=== PATIENT | male | born 2000 | race Caucasian/White ===

== ENCOUNTER → 2018-04-09 14:26 | Outpatient (CLI) | payer SELFPAY ==
--- NOTE | 2018-04-09 14:51 | CT_ITS ---
CT abdomen pelvis w con CLINICAL INDICATION: Right lower quadrant pain with nausea and vomiting ITS.REASON: RLQ PAIN ORDERING PHYSICIAN: Anni Gambino PATIENT AGE: 17 years COMPARISON: None TECHNIQUE: Axial images obtained with sagittal and coronal reformats. All CT scans at the facility use one or more dose reduction, viz: automated exposure control, ma/kV adjustment per patient size (including targeted exams where dose is matched to indication, i.e. head), or iterative reconstruction technique. PROCEDURE: Oral Contrast: Gastroview IV Contrast: 75 mL of Isovue-370. FINDINGS: The lung bases are clear. The liver, gallbladder, spleen, adrenal glands, pancreas, and kidneys have an unremarkable appearance. There are scattered small nodes present in the mesenteries. A normal appendix is not identified. What appears represent a mildly distended appendix noted images [id number] with suspected appendicolith at the base of the appendix at 10 mm. No significant stranding however noted in the periappendiceal region No abscess. No free air. No acute bony anomalies. IMPRESSION: The findings are suspicious for appendicitis with appendicolith. No abscess or free air evident. Scattered small mesenteric lymph nodes [facility] teleradiology report rendered 04/09/2018 5:25 PM
[2018-04-09 15:01] LABS: Blood Urea Nitrogen 11 mg/dL (7-18); Creatinine,Serum 0.89 mg/dL (0.70-1.30); Estimated Glomerular Filt Rate 110 ml/min (>60); GFR (African American) 133 ML/MIN (>60)
== END ==
PROVIDERS: PCP Nurse Practitioner Family; Visit Provider Nurse Practitioner Family
DX: R10.31 Right lower quadrant pain (principal)
CPT/HCPCS: 36415; 74177; 82565; 84520; Q9967

== ENCOUNTER 2018-04-09 17:43 | Observation (INO) ==
--- NOTE | 2018-04-09 18:07 | Emergency Department Note ---
ED Disposition Clinical Impression: Abdominal pain Qualifiers: Abdominal location: right lower quadrant Qualified Code(s): R10.31 - Right lower quadrant pain Acute appendicitis Qualifiers: Acute appendicitis type: with localized peritonitis Appendicitis gangrene presence: without gangrene Appendicitis perforation presence: without perforation Appendicitis abscess presence: without abscess Qualified Code(s): K35.30 - Acute appendicitis with localized peritonitis, without perforation or gangrene Disposition: Admitted as Observation Condition on Discharge: Fair Instructions: Acute Abdominal Pain Additional Instructions: DI for Acute Appendicitis Referrals: Provider,Referral, [Primary Care Provider] - - Critical Care Critical Care Time: No Attestation: On 04/09/18, the high probability of a clinically significant, sudden or life threatening deterioration of the following system(s) required my full and direct attention, intervention and personal management. The time I documented below is in addition to time spent performing reported procedures but includes the following listed in this critical care notation. Medical Decision Making - Medical Records Medical records reviewed: Yes: I reviewed the patient's medical records. - Ankit Inquiry Pt receiving controlled substance: Yes Ankit was queried for this patient: No Reason not queried -: Emergent pt cond-no time Risks and benefits of using a controlled substance: were discussed with pt by me Vital Signs: 04/09/18 18:01 Temperature 98.7 F Temperature Source Oral Pulse Rate [Left Radial] 75 Respiratory Rate 20 Blood Pressure [Right Arm] 118/54 L Blood Pressure Mean [Right Arm] 75 Blood Pressure Source [Right Arm] Automatic Cuff Blood Pressure Position [Right Arm] Sitting 02 Sat by Pulse Oximetry 97 Oxygen Delivery Method Room Air - Lab Data Lab results reviewed: Yes: I reviewed the patient's lab results. Orders (Tests/Meds): ED MEDICATIONS Generic Name Dose Route Start Last Admin Trade Name Freq PRN Reason Stop Dose Admin Sodium Chloride 1,000 mls @ 500 mls/hr 04/09/18 18:00 Sod Chlor 0.9% 1000ml Bag IV 05/09/18 17:59 .Q2H ULI Metronidazole 100 mls @ 100 mls/hr 04/09/18 18:00 Flagyl 500mg/100ml Ivpb IV 04/09/18 18:59 ONCE ONE Discontinued Medications Generic Name Dose Route Start Last Admin Trade Name Freq PRN Reason Stop Dose Admin Cefazolin Sodium 1 gm 04/09/18 17:58 Ancef 1gm Vial IM 04/09/18 17:59 ONCE ONE Protocol Ampicillin Sodium/Sulbactam 100 mls @ 200 mls/hr 04/09/18 18:08 Sodium 3 gm/ Sodium Chloride IV 04/09/18 18:09 ONCE ONE Protocol Morphine Sulfate 4 mg 04/09/18 17:54 04/09/18 18:06 Morphine 4mg/Ml Syringe IV 04/09/18 17:55 4 mg ONCE ONE Administration Ondansetron HCl 4 mg 04/09/18 17:55 04/09/18 18:06 Zofran 4mg/2ml Vial IV 04/09/18 17:56 4 mg ONCE ONE Administration ORDERS Category Date Time Status Amylase Stat Lab 04/09/18 18:02 Received CBC [Complete Blood Count Auto Diff] Stat Lab 04/09/18 18:02 Received CMP [Comprehensive Metabolic Panel] Stat Lab 04/09/18 18:02 Received Lipase Stat Lab 04/09/18 18:02 Received Blood Culture Stat Micro 04/09/18 18:02 Ordered - CT Data CT Scan: Abdomen, Pelvis Time Received: 18:[address] Reviewed: Yes: I have reviewed the patient's CT results, I have viewed the radiologist's interpretation Preliminary Findings: Abnormal Findings Narrative: Acute Appendicitis - Physician Consults Physician Consulted: Dr. Slaughter Time: 18:00 (Will see in ED) Reason -: Admission, Pt condition Abdominal Pain HPI - General Stated Complaint: Appendicitis Time Seen by Provider: 04/09/18 17:45 Mode of Arrival: Ambulatory Source of Information: Patient, Parent(s) Limitations: No Limitations - History of Present Illness complaint: abdominal pain Onset (ago): week(s) (1) Consistency: constant Location: RLQ Severity: moderate (worse since yesterday) Severity scale (1-10): 9 Quality: sharp Radiation: RLQ Migration to: no migration Relieving factors: nothing Exacerbating factors: nothing Associated symptoms: nausea - Related Data Allergies Allergy/AdvReac Type Severity Reaction Status Date / Time No Known Allergies Allergy Verified 04/09/18 18:06 [facility] History I have reviewed the patient's past medical history: Yes ROS Obtained: Yes All systems reviewed & no additional complaints - Constitutional Constitutional: Reports system reviewed and no additional complaints, except as docu, Denies chills, Denies fever(s) - Cardiovascular Cardiovascular: Reports system reviewed and no additional complaints, except as docu - Respiratory Respiratory: Yes system reviewed and no additional complaints, except as docu - Gastrointestinal Gastrointestingal: Reports: system reviewed and no additional complaints, except as docu, abdominal pain, nausea. Denies: constipation, diarrhea, vomiting - Genitourinary Male Genitourinary: Reports system reviewed and no additional complaints, except as docu, Denies difficulty urinating, Denies flank pain Physical Exam - General General appearance: alert, in distress (moderate) - Head Head exam: atraumatic, normocephalic, normal inspection - Neck Neck exam: Present: normal inspection, full ROM, trachea midline. Absent: meningismus, lymphadenopathy - Respiratory Respiratory exam: Present: normal lung sounds bilaterally. Absent: respiratory distress - Cardiovascular Cardiovascular exam: Present: regular rate, normal rhythm. Absent: JVD - Abdominal Exam Abdominal exam: Present: soft, tenderness (periumbilical), normal bowel sounds. Absent: distention, guarding - Extremities Exam Extremities exam: Present: normal inspection - Neurological Exam Neurological exam: Present: alert, oriented X3 - Psychiatric Psychiatric exam: Present: normal affect, normal mood
[2018-04-09 18:20] LABS: Amylase 37 U/L (25-115); Lipase 86 u/L (73-393)
[2018-04-09 18:23] LABS: Albumin Level 4.7 gm/dL (3.4-5.0); Albumin/Globulin Ratio 1.3 (1.1-1.8); Anion Gap 14.7 mEq/L (5-15); Bilirubin,Total 0.9 mg/dL (0.2-1.0); Calcium 9.4 mg/dL (8.5-10.1); Globulin 3.5 gm/dl (1.3-3.2); Potassium 3.7 mmoL/L (3.5-5.1); Total Protein,Serum 8.2 gm/dL (6.4-8.2)
[2018-04-09 19:05] LABS: INR 1.13 (0.9-1.1); Prothrombin Time 11.6 seconds (9.4-11.8)
[2018-04-09 19:15] LABS: Basophils % 0.2 % (0.1-2.0); Eosinophils % 0.1 % (0.1-12.0); Lymphocytes # 0.9 K/mm3 (0.7-4.5); Lymphocytes % 4.6 % (10-50); Mean Corpuscular HGB Conc 33.3 g/dL (31.8-35.4); Mean Corpuscular Hemoglobin 29.4 pg (27.0-31.2); Mean Corpuscular Volume 88.4 fl (80-94); Mean Platelet Volume 7.8 fl (7.4-10.4); Monocytes % 4.9 % (1.7-9.3); Neutrophils # 18.2 K/mm3 (1.8-7.8); Neutrophils % 90.1 % (37.0-80.0); Platelet Count 232 K/mm3 (142-424); Red Blood Count 5.77 M/mm3 (4.60-6.20); Red Cell Distribution Width 12.8 % (11.5-17.5); White Blood Count 20.2 K/mm3 (4.5-13.0)
[2018-04-09 19:16] LABS: Activated Partial Thrombo Time 35.6 seconds (23.6-34.0)
[2018-04-09 20:07] LABS: Lymphocytes % 6 % (10-50); Monocytes % 5 % (2-9); Neutrophils % 89 % (42-76); RBC Morphology Normal; Total Cells Counted 100
--- NOTE | 2018-04-09 23:16 | Progress Note ---
[facility] Anesthesia Checklist - Patient Identification Patient Identification: Arm Band, Verbal (Name & ) - Structural Data Admitted From: Home Planned Operative Procedure/s: lkap appy - NPO Status Verified Time NPO: 06:00 - Additional verifications Patient : No Anesthesia Reactions: No Hx Blood Transfusions: No Blood Transfusion Reaction: No Cephalosporin Allergy: No Previous Colonoscopy: No - Cardiovascular Assessment Heart Sounds: S1 & S2 Pulse Strength: Baseline Pulse Rhythm: Regular Peripheral Edema: No - Airway Assessment C-Spine Mobility Assessed: Yes TMJ Mobility Assessed: Yes Dentition: Good Dentition - Neurological Assessment Level of Consciousness: Awake, Alert, Appropriate Hx Seizures: No Numbness or tingling in extremities: No - Anesthesia Plan Anesthesia Risk discussed: Yes Anesthesia Plan: Patient unable to respond/answer ASA Class: I Anesthesia Type: General [facility] History I have reviewed the patient's past medical history: Yes Medical History: Denies:: Diabetes Mellitus Type 1, Diabetes Mellitus Type 2, Seizures Other Medical History: Denies: Blood Transfusion Reaction Other Surgeries: Yes: No Previous Surgery - *Social History Alcohol Intake: never - Psychiatric History Expresses thoughts of harming self/others: None Suicide Plan Description: No Plan
--- NOTE | 2018-04-09 23:16 | Operative Note ---
Date of procedure: 04/09/18 Pre-op Diagnosis:: Appendicitis Post-op Diagnosis:: Suppurative appendicitis Procedure performed:: Laparoscopic appendectomy Surgeon:: Neil Slaughter MD SULFONATOR OPERATOR:: Berny Gupta Anesthesia: GETJodi Estimated blood loss (mL): 10 Operative findings:: Severe appendiceal/periappendiceal inflammation Significant suppurative changes No definitive sign of perforation Operative note:: After informed consent was obtained the patient was taken to the operating room and placed in the supine position. General anesthesia was induced and his abdomen was prepped and draped in a sterile fashion. After infiltration with local anesthetic an infraumbilical incision was made. A Veress needle was placed in position. The abdomen was insufflated. A 12 mm optical trocar was placed in position. Under direct visualization a 5 mm trocar was placed in the suprapubic position. An additional 5 mm trocar was placed in the left lower quadrant. Inspection revealed significant enlargement and inflammation of the appendix and severe suppurative changes. No obvious perforation noted. The appendix was carefully elevated. The base appeared relatively normal. A window was made in the mesoappendix at the base and an Endopath ETS Flex 45 was utilized to transect at this site. The mesoappendix was taken with harmonic ender. The appendix was placed in a retrieval bag and removed through the infraumbilical trocar site. The right lower quadrant was thoroughly irrigated. No active bleeding or sign of injury noted. The staple margin appeared normal. Pneumoperitoneum was released as the trocars were removed. Fascia at the infraumbilical site was reapproximated with 0 Ethibond. All wounds were irr igated and skin was closed with 4-0 Monocryl in a subcuticular fashion. Steri- Strips were applied. The patient's anesthetic agents were reversed and he was extubated prior to transfer to recovery. Condition: stable Disposition: PACU Specimens:: Appendix Complications:: No immediate
--- NOTE | 2018-04-09 23:18 | Progress Note ---
[facility] Anesthesia Record Part I Intake, IV Amount: 800 Estimated blood loss (mL): 10 Urine output (mL): 150 Blood Products used (#): none Blood Pressure: 106/45 SaO2: 93 Pulse Rate: 67 Respiratory Rate: 18 Temperature: 98.2 F Patient is:: Drowsy, Stable Stable to PACU at:: 23:12
--- NOTE | 2018-04-09 23:19 | Progress Note ---
[facility] Anesthesia Record Part II Discharge Time: 23:42 Destination: Medical Surgical Department PACU nurse assessment reviewed?: Yes Patient Condition:: Good Anesthesia Complications:: None
[2018-04-10 07:01] LABS: Basophils % 0.1 % (0.1-2.0); Hematocrit 41.7 % (42.0-52.0); Lymphocytes # 0.9 K/mm3 (0.7-4.5); Lymphocytes % 5.5 % (10-50); Mean Corpuscular HGB Conc 33.3 g/dL (31.8-35.4); Mean Corpuscular Hemoglobin 29.7 pg (27.0-31.2); Mean Corpuscular Volume 89.1 fl (80-94); Mean Platelet Volume 8.3 fl (7.4-10.4); Monocytes # 0.6 K/mm3 (0.1-1.0); Monocytes % 3.7 % (1.7-9.3); Neutrophils % 90.6 % (37.0-80.0); Platelet Count 166 K/mm3 (142-424); Red Blood Count 4.69 M/mm3 (4.60-6.20); Red Cell Distribution Width 12.8 % (11.5-17.5); White Blood Count 15.4 K/mm3 (4.5-13.0)
--- NOTE | 2018-04-10 07:14 | Progress Note ---
Subjective Patient reports: feels better Exam Vital signs and Labs for Last 24 Hours: Temp Pulse Resp BP Pulse Ox 98 F 68 18 112/59 L 97 04/10/18 06:30 04/10/18 06:30 04/10/18 06:30 04/10/18 06:30 04/10/18 06:30 Laboratory Results - last 24 hr 04/09/18 17:54: PT 11.6, INR 1.13 H, APTT 35.6 H 04/09/18 18:02: WBC 20.2 H*, RBC 5.77, Hgb 17.0, Hct 51.0, MCV 88.4, MCH 29.4, MCHC 33.3, RDW 12.8, Plt Count 232, MPV 7.8, Neut % (Auto) 90.1 H, Lymph % (Auto) 4.6 L, [place] % (Auto) 4.9, Eos % (Auto) 0.1, Baso % (Auto) 0.2, Neut # (Auto) 18.2 H, Lymph # (Auto) 0.9, [place] # (Auto) 1.0, Eos # (Auto) 0.0, Baso # (Auto) 0.0, Total Counted 100, Neutrophils % (Manual) 89 H, Lymphocytes % (Manual) 6 L, Monocytes % (Manual) 5, Platelet Estimate Normal, RBC Morphology Normal 04/09/18 18:02: Sodium 139, Potassium 3.7, Chloride 100, Carbon Dioxide 28, Anion Gap 14.7, BUN 10, Creatinine 0.99, Estimated Creat Clear 123, Estimated GFR 97, Est GFR ( Amer) 118, Glucose 104, Calcium 9.4, Total Bilirubin 0.9, AST 20, ALT 32, Alkaline Phosphatase 84, Total Protein 8.2, Albumin 4.7, Globulin 3.5 H, Albumin/Globulin Ratio 1.3 04/09/18 18:02: Amylase 37, Lipase 86 04/10/18 00:00: Urine Color Yellow, Urine Appearance Clear, Urine pH 6.0, Ur Specific [place] 1.020, Urine Protein Negative, Urine Glucose (UA) Negative, Urine Ketones 2+, Urine Blood Negative, Urine Nitrate Negative, Urine Bilirubin Negative, Urine Urobilinogen 0.2, Ur Leukocyte Esterase Negative, Urine WBC Occasional, Ur Squamous Epith Cells Occasional, Urine Bacteria Trace I & O for Last 24 hours: Intake & Output 04/07/18 04/08/18 04/09/18 04/10/18 11:59 11:59 11:59 11:59 Intake Total 2267 / 2267 Balance 2267 / 2267 Weight 156 lb 4 oz - Constitutional no acute distress - *Routine Respiratory Exam Absent: respiratory distress - *Routine Cardiovascular Exam Present: RRR - *Routine Abdominal Exam Present: soft Progress Note: A&P (1) Acute appendicitis Problem details: Suppurative appendicitis with no definitive evidence of perforation Status: Acute Assessment and plan: Follow-up a.m. labs Increase ambulation Continue IV antibiotics Current Visit: Yes
[2018-04-10 07:23] LABS: Hemoglobin 13.9 g/dL (14.1-18.0)
--- NOTE | 2018-04-10 08:09 | Pharmacy Consult Notes ---
[facility] Pharmacy VTE Monitoring - Patient Demographics Admission date: 04/10/18 Report Date: 04/10/18 Time: 08:08 Allergies/Adverse Reactions: Patient Allergies No Known Allergies Allergy (Verified 04/09/18 18:06) Height: 1.78 m Weight: 70.874 kg Patient Problems: Current Active Problems Abdominal pain (Acute) Acute appendicitis (Acute) - VTE Risk Labs: VTE Related Lab Results Hgb 13.9 g/dL (14.1-18.0) L D 04/10/18 06:32 Hct 41.7 % (42.0-52.0) L 04/10/18 06:32 Plt Count 166 K/mm3 (142-424) D 04/10/18 06:32 PT 11.6 seconds (9.4-11.8) 04/09/18 17:54 INR 1.13 (0.9-1.1) H 04/09/18 17:54 APTT 35.6 seconds (23.6-34.0) H 04/09/18 17:54 BUN 12 mg/dL (7-18) 04/10/18 06:32 Creatinine 0.98 mg/dL (0.70-1.30) 04/10/18 06:32 Estimated Creat Clear 122 mL/min (50-200) 04/10/18 06:32 Was VTE Risk Assessment Performed: Yes VTE Score: 0 VTE Risk Level: Very Low Risk Clinical Trial Participant: No - Prophylaxis VTE Prophylaxis Ordered?: Yes Types of VTE Prophylaxis: TEDS Knee High Location of Applied Device: Bilateral Lower Extremeties
[2018-04-10 08:36] LABS: Calcium 8.3 mg/dL (8.5-10.1)
[2018-04-10 08:53] LABS: Lymphocytes % 4 % (10-50); Monocytes % 5 % (2-9); Neutrophils % 91 % (42-76); Total Cells Counted 100
[2018-04-11 06:33] LABS: Basophils % 0.5 % (0.1-2.0); Eosinophils # 0.1 K/mm3 (0.0-0.4); Eosinophils % 1.1 % (0.1-12.0); Hematocrit 39.9 % (42.0-52.0); Hemoglobin 13.1 g/dL (14.1-18.0); Lymphocytes # 1.8 K/mm3 (0.7-4.5); Lymphocytes % 24.4 % (10-50); Mean Corpuscular Hemoglobin 29.8 pg (27.0-31.2); Mean Corpuscular Volume 90.3 fl (80-94); Mean Platelet Volume 8.1 fl (7.4-10.4); Monocytes # 0.4 K/mm3 (0.1-1.0); Monocytes % 5.6 % (1.7-9.3); Neutrophils % 68.2 % (37.0-80.0); Platelet Count 148 K/mm3 (142-424); Red Blood Count 4.42 M/mm3 (4.60-6.20); Red Cell Distribution Width 13.1 % (11.5-17.5); White Blood Count 7.4 K/mm3 (4.5-13.0)
--- NOTE | 2018-04-11 07:20 | Progress Note ---
Subjective Patient reports: feels better Exam Vital signs and Labs for Last 24 Hours: Temp Pulse Resp BP Pulse Ox 97.4 F L 71 18 106/54 L 97 04/11/18 04:00 04/11/18 04:00 04/11/18 04:00 04/11/18 04:00 04/11/18 04:00 Laboratory Results - last 24 hr 04/10/18 06:32: WBC 15.4 H, RBC 4.69, Hgb 13.9 L D, Hct 41.7 L, MCV 89.1, MCH 29.7, MCHC 33.3, RDW 12.8, Plt Count 166 D, MPV 8.3, Neut % (Auto) 90.6 H, Lymph % (Auto) 5.5 L, [place] % (Auto) 3.7, Eos % (Auto) 0.0 L, Baso % (Auto) 0.1, Neut # (Auto) 14.0 H, Lymph # (Auto) 0.9, [place] # (Auto) 0.6, Eos # (Auto) 0.0, Baso # (Auto) 0.0, Total Counted 100, Neutrophils % (Manual) 91 H, Lymphocytes % (Manual) 4 L, Monocytes % (Manual) 5, Platelet Estimate Normal, RBC Morphology Not Reportable 04/10/18 06:32: Calcium 8.3 L D 04/11/18 06:11: WBC 7.4 D, RBC 4.42 L, Hgb 13.1 L, Hct 39.9 L, MCV 90.3, MCH 29.8, MCHC 33.0, RDW 13.1, Plt Count 148, MPV 8.1, Neut % (Auto) 68.2, Lymph % (Auto) 24.4, [place] % (Auto) 5.6, Eos % (Auto) 1.1, Baso % (Auto) 0.5, Neut # (Auto) 5.0, Lymph # (Auto) 1.8, [place] # (Auto) 0.4, Eos # (Auto) 0.1, Baso # (Auto) 0.0 I & O for Last 24 hours: Intake & Output 04/08/18 04/09/18 04/10/18 04/11/18 11:59 11:59 11:59 11:59 Intake Total 2967 / 2967 5090 / 5090 Balance 2967 / 2967 5090 / 5090 Weight 156 lb 4 oz - *Routine Abdominal Exam Present: soft Progress Note: A&P (1) Acute appendicitis Problem details: Suppurative appendicitis with no definitive evidence of perforation Status: Acute Current Visit: Yes Assessment and Plan for All Diagnoses:: Patient doing well overnight without any issues. Feels well. No nausea. Plan for discharge home.
--- NOTE | 2018-04-11 07:23 | Discharge Summary ---
General - General Admission date:: 04/09/18 Discharge date: 04/11/18 HPI HPI: Patient presented to the emergency department with acute appendicitis. Objective Vital signs: Temp Pulse Resp BP Pulse Ox 97.4 F L 71 18 106/54 L 97 04/11/18 04:00 04/11/18 04:00 04/11/18 04:00 04/11/18 04:00 04/11/18 04:00 Results Labs on day of discharge: Labs from last 24 hours 04/11/18 04/10/18 04/10/18 06:11 06:32 06:32 WBC 7.4 D 15.4 H RBC 4.42 L 4.69 Hgb 13.1 L 13.9 L D Hct 39.9 L 41.7 L MCV 90.3 89.1 MCH 29.8 29.7 MCHC 33.0 33.3 RDW 13.1 12.8 Plt Count 148 166 D MPV 8.1 8.3 Neut % (Auto) 68.2 90.6 H Lymph % (Auto) 24.4 5.5 L [place] % (Auto) 5.6 3.7 Eos % (Auto) 1.1 0.0 L Baso % (Auto) 0.5 0.1 Neut # (Auto) 5.0 14.0 H Lymph # (Auto) 1.8 0.9 [place] # (Auto) 0.4 0.6 Eos # (Auto) 0.1 0.0 Baso # (Auto) 0.0 0.0 Total Counted 100 Neutrophils % (Manual) 91 H Lymphocytes % (Manual) 4 L Monocytes % (Manual) 5 Platelet Estimate Normal RBC Morphology Not Reportable Calcium 8.3 L D DS: Diagnosis - Discharge Diagnosis (1) Acute appendicitis Status: Acute Problem details: Suppurative appendicitis with no definitive evidence of perforation Discharge Plan - Patient Discharge Instructions ACTIVITY: No heavy lifting DIET: advance to your usual diet Patient Instructions: DI for Surgical Site Infection - Follow up Plan Follow up with: Neil Slaughter MD [Staff Physician] - 1 week Disposition: Home, Self-Intermediate Medications: Home Medications Medication Instructions Recorded Confirmed Type No Known Home Medications 04/09/18 04/09/18 History Prescriptions/Medication Reconciliation: New Amoxicillin/Potassium Clav [Augmentin 875-125 Tablet] 1 tab PO Q12H #10 tab No Action No Known Home Medications
== END 2018-04-11 08:56 | disposition home or self-care (01) ==
LOC: ER 17:43 → INTOOBSV 19:34 → 2ND 19:34
PROVIDERS: ADMIT Surgery; ATTEND Surgery
DX: K35.890 Other acute appendicitis without perforation or gangrene
CPT/HCPCS: 36415; 80048; 80053; 81001; 82150; 83690; 85007; 85025; 85610; 85730; 87040; 93005; 96374; 96375; 96376; 99284; G0378; J0131; J2405; J2543; J2710